=== PATIENT | female | born 1995 | race American Indian/Alaskan Native ===

== ENCOUNTER 2021-05-21 13:39 | Emergency (ER) | payer SELFPAY ==
[2021-05-21] MEDS ORDERED: SODIUM CHLORIDE 0.9% 1000 ML 1,000 ML IV ONE (13:58)
[2021-05-21] MEDS ORDERED: ONDANSETRON 4 MG/2 ML INJ IV ONE (13:58)
[2021-05-21] MEDS ORDERED: KETOROLAC 30 MG/1 ML INJ IV ONE (13:58)
--- NOTE | 2021-05-21 14:00 | Emergency Department Report ---
ED General Adult HPI - General Chief complaint: Fever Stated complaint: VOMITING, CHILLS, GRAHAM PUI?: Yes Time Seen by Provider: 05/21/21 13:47 Source: patient Mode of arrival: Ambulatory Limitations: No Limitations - History of Present Illness Initial comments: 25-year-old female denies any significant past medical history presents to the ER today with flulike symptoms. Patient states her symptoms started this morning. She reports fever at home, chills, headache, generalized body aches, nausea and vomiting, generalized weakness and mild cough. She reports diffuse numbness all over her body but she is hyperventilating in the room. She reports no wheezing, chest pain, abdominal pain, diarrhea, UTI symptoms. She denies any ill contacts or recent travel. She has not received a flu no COVID-19 vaccine. Her last menstrual cycle was 1 week ago. She states she smokes marijuana but not tobacco. She denies any other illicit drug use. MD Complaint: flu like symptoms; fever -: This morning Severity scale (0 -10): 10 - Related Data Previous Rx's Medication Instructions Recorded Last Taken Type Ibuprofen [Motrin] 800 mg PO Q8HR PRN #30 tablet 05/21/21 Unknown Rx Promethazine [Phenergan] 25 mg PO Q6HR PRN #15 tab 05/21/21 Unknown Rx Allergies Allergy/AdvReac Type Severity Reaction Status Date / Time oxycodone Allergy Rash Verified 05/21/21 13:40 ED Review of Systems ROS: Stated complaint: VOMITING, CHILLS, GRAHAM Other details as noted in HPI Comment: All other systems reviewed and negative Constitutional: chills, fever Eyes: denies: eye pain ENT: other (Rhinorrhea). denies: ear pain, throat pain, congestion Respiratory: cough. denies: shortness of breath, wheezing Cardiovascular: denies: chest pain Gastrointestinal: nausea, vomiting. denies: abdominal pain, diarrhea, constipation, hematemesis, hematochezia Genitourinary: denies: urgency, dysuria, frequency, hematuria, discharge, abnormal menses, dyspareunia Musculoskeletal: myalgia. denies: back pain, joint swelling, arthralgia Skin: denies: rash, lesions, change in color, change in hair/nails Neurological: headache, numbness, paresthesias. denies: confusion, abnormal gait, vertigo Psychiatric: denies: anxiety, depression, auditory hallucinations, visual hallucinations, homicidal thoughts, suicidal thoughts Hematological/Lymphatic: denies: easy bleeding, easy bruising, swollen glands ED Past Medical Hx - Past Medical History Previous Medical History?: No - Surgical History Past Surgical History?: No - Medications Home Medications: Home Medications Medication Instructions Recorded Confirmed Last Taken Type Ibuprofen [Motrin] 800 mg PO Q8HR PRN #30 tablet 05/21/21 Unknown Rx Promethazine [Phenergan] 25 mg PO Q6HR PRN #15 tab 05/21/21 Unknown Rx ED Physical Exam - General Limitations: No Limitations General appearance: alert, other (Patient anxious, crying and hyperventilating in the room) - Head Head exam: Present: atraumatic, normocephalic, normal inspection - Eye Eye exam: Present: normal appearance, PERRL, EOMI Pupils: Present: normal accommodation - ENT ENT exam: Present: normal exam, mucous membranes moist - Neck Neck exam: Present: normal inspection, full ROM. Absent: meningismus - Respiratory Respiratory exam: Present: normal lung sounds bilaterally. Absent: respiratory distress, wheezes, rales, rhonchi, stridor - Cardiovascular Cardiovascular Exam: Present: regular rate, normal rhythm, normal heart sounds - GI/Abdominal GI/Abdominal exam: Present: soft. Absent: distended, tenderness, guarding, rebound - Neurological Exam Neurological exam: Present: alert, oriented X3, CN II-XII intact, normal gait - Psychiatric Psychiatric exam: Present: normal affect, normal mood - Skin Skin exam: Present: intact ED Course Vital Signs 05/21/21 05/21/21 05/21/21 13:40 14:53 16:27 Temperature 101.5 F H 97.5 F L Pulse Rate 91 H 81 Respiratory 20 16 16 Rate Blood Pressure 111/74 104/51 [Right] O2 Sat by Pulse 100 100 96 Oximetry ED Medical Decision Making - Lab Data Result diagrams: 05/21/21 14:51 05/21/21 14:51 - Radiology Data Radiology results: report reviewed Patient: AISSATOU MEYERS MR#: [id number] : 1995 Acct:[id number] Age/Sex: 25 / F ADM Date: 05/21/21 Loc: ED Attending Dr: Ordering Physician: RUBA LING Date of Service: 05/21/21 Procedure(s): XR chest routine 2V Accession Number(s): [id number] cc: RUBA LING Fluoro Time In Minutes: CHEST 2 VIEWS INDICATION / CLINICAL INFORMATION: Fever. COMPARISON: None available. FINDINGS: SUPPORT DEVICES: None. HEART / MEDIASTINUM: The heart size and pulmonary vasculature are normal. LUNGS / PLEURA: No significant pulmonary or pleural abnormality. No pneumothorax. ADDITIONAL FINDINGS: No significant additional findings. IMPRESSION: No acute findings. There is no evidence of pneumonia. Signer Name: Paul Baer MD Signed: 05/21/2021 3:48 PM Workstation Name: [id number] Transcribed By: RT Dictated By: Paul Baer MD Electronically Authenticated By: Paul Baer MD Signed Date/Time: 05/21/211547 DD/ 47 TD/TT: - Medical Decision Making Work up today unremarkable. The patient is now resting comfortably, is alert and in no distress. She feels better. The patient has normal mental status and is neurologically intact. He appears to be feeling much better, is able to tolerate p.o. fluids and solids by mouth and there is no significant dehydration. There is no respiratory distress and no signs of systemic toxicity. Repeat vital signs much improved after meds. The history, exam, diagnostic testing and current condition do not demonstrate an infectious process such as meningitis, severe pneumonia, retropharyngeal abscess, acute respiratory distress syndrome with hypoxia, sepsis or other serious bacterial infection/viral infection requiring further testing, treatment, consultation or admission at this time. The patient's condition is stable and appropriate for discharge. The patient will pursue further outpatient evaluation with the primary care physician or other designated or consulting physician as indicated on the discharge instructions. Critical care attestation.: If time is entered above; I have spent that time in minutes in the direct care of this critically ill patient, excluding procedure time. ED Disposition Clinical Impression: Viral illness Disposition: 01 HOME / SELF CARE / HOMELESS Is pt being admited?: No Does the pt Need Aspirin: No Condition: Stable Instructions: Viral Illness, Adult Additional Instructions: I recommend that you drink lots of fluids. You can take Tylenol and alternate with ibuprofen to help with any pain and fever. Take the promethazine to help with any nausea or vomiting. Recommend that you take a multivitamin including vitamin C, zinc and vitamin D. I do recommend that she get an outpatient COVID- 19 test as this could also be a cause of your symptoms. I do recommend quarantine at home until you get the results of your test. Follow-up with your PCP. Return to the ER if your symptoms changes or worsens in any way. Prescriptions: Ibuprofen [Motrin] 800 mg PO Q8HR PRN #30 tablet PRN Reason: pain Promethazine [Phenergan] 25 mg PO Q6HR PRN #15 tab PRN Reason: Nausea Referrals: [facility] [Provider Group] - 3-5 Days Forms: Work/School Release Form(ED) Time of Disposition: 16:19
[2021-05-21 14:52] LABS: Bilirubin,Urine NEG (Negative); Blood,Urine NEG (Negative); Color,Urine Yellow (Yellow); Mucus,Urine 1+ /HPF; Urobilinogen,Urine < 2.0 mg/dL (<2.0)
[2021-05-21 15:20] LABS: Basophils % (Auto) 0.5 % (0.0-1.8); Eosinophils % (Auto) 0.1 % (0.0-4.3); Hematocrit 35.2 % (30.3-42.9); Hemoglobin 11.4 gm/dl (10.1-14.3); Lymphocytes # (Auto) 0.6 K/mm3 (1.2-5.4); Lymphocytes % (Auto) 6.4 % (13.4-35.0); Mean Corpuscular HGB Conc 33 % (30-34); Mean Corpuscular Volume 89 fl (79-97); Monocytes # (Auto) 0.7 K/mm3 (0.0-0.8); Monocytes % (Auto) 7.6 % (0.0-7.3); Platelet Count 318 K/mm3 (140-440); Red Blood Count 3.94 M/mm3 (3.65-5.03); Red Cell Distribution Width 13.4 % (13.2-15.2)
--- NOTE | 2021-05-21 15:52 | XRay Report ---
CHEST 2 VIEWS INDICATION / CLINICAL INFORMATION: Fever. COMPARISON: None available. FINDINGS: SUPPORT DEVICES: None. HEART / MEDIASTINUM: The heart size and pulmonary vasculature are normal. LUNGS / PLEURA: No significant pulmonary or pleural abnormality. No pneumothorax. ADDITIONAL FINDINGS: No significant additional findings. IMPRESSION: No acute findings. There is no evidence of pneumonia. Signer Name: Paul Baer MD Signed: 05/21/2021 3:48 PM Workstation Name: [id number]
[2021-05-21 16:04] LABS: Alanine Aminotransferase 20 units/L (7-56); Albumin 4.5 g/dL (3.9-5); Blood Urea Nitrogen 10 mg/dL (7-17); Calcium 9.2 mg/dL (8.4-10.2); Hemolysis Index 28
[2021-05-21 16:10] LABS: BUN/Creatinine Ratio 14
[2021-05-21 16:30] VITALS: BP 104/51
== END 2021-05-21 16:34 | disposition home or self-care (01) ==
LOC: ED 13:39
DX: B34.9 Viral infection, unspecified (principal); R51.9 Headache, unspecified; M79.18 Myalgia, other site; R11.2 Nausea with vomiting, unspecified; Z88.5 Allergy status to narcotic agent; Z79.899 Other long term (current) drug therapy
CPT/HCPCS: 36415; 71046; 80053; 81001; 84703; 85025; 87400; 96361; 96374; 96375; 99284; J1885; J2405; J7030; Q0162